=== PATIENT | male | born 1985 | race African-American/Black ===

== ENCOUNTER 2024-06-21 21:35 | Emergency (ER) | payer OTHER ==
[~2024-06-21] VITALS: Ht 172.7 cm; Wt 87.0 kg
[2024-06-21 21:42] VITALS: O2SAT 98
[2024-06-21 21:45] VITALS: BP 137/89; PULSE 86; RESP 16; TEMP 98; O2SAT 99
[2024-06-21 22:39] LABS: BASOPHILS % 0.8 % (0.0-2.0); EOSINOPHILS % 7.5 % (0.0-5.0); HEMATOCRIT. 42.2 % (42.0-52.0); HEMOGLOBIN. 13.7 g/dL (14.0-18.0); LYMPHOCYTES % 39.5 % (20.0-50.0); MEAN CORPUSCULAR HEMOGLOBIN 26.3 pg (28.0-32.0); MEAN CORPUSCULAR HGB CONC 32.4 g/dL (31.0-37.0); MEAN CORPUSCULAR VOLUME 81.3 fL (80.0-94.0); MEAN PLATELET VOLUME 8.5 fl (7.4-10.4); MONOCYTES % 8.1 % (2.0-8.0); NEUTROPHILS % 44.1 % (40.0-76.0); PLATELET 195 x1000/uL (130-400); RED CELL DISTRIBUTION WIDTH 13.9 % (11.6-14.6); WHITE BLOOD COUNT 5.4 x1000/uL (4.5-11.0)
[2024-06-21 22:49] LABS: CARBON DIOXIDE 30 mEq/L (21-32); CHLORIDE 106 mEq/L (98-107); POTASSIUM 4.2 mEq/L (3.5-5.1); SODIUM 141 mEq/L (136-145)
[2024-06-21 22:50] LABS: CALCIUM 9.9 mg/dL (8.7-10.4)
[2024-06-21 22:55] LABS: CREATININE 1.5 mg/dL (0.6-1.3); GLUCOSE 109 mg/dL (70-105); TROPONIN I HIGH SENSITIVITY 10 ng/L (3.0-53); UREA NITROGEN BLOOD 16 mg/dL (9-23)
[2024-06-21] MEDS ORDERED: SODIUM CHLORIDE 0.9% 1,000 ML IV NR (23:30)
[2024-06-21] MEDS ORDERED: HYDROCODONE/ACETAMINOPHEN 10/325MG TABLET PO ONE (23:45)
[2024-06-22] MEDS: HYDROCODONE/ACETAMINOPHEN 10/325MG TABLET PO NR (00:26)
== END 2024-06-22 00:34 | disposition home or self-care (01) ==
LOC: ER 21:35
DX: N17.9 Acute kidney failure, unspecified (principal); M54.9 Dorsalgia, unspecified; R42 Dizziness and giddiness
CPT/HCPCS: 36415; 71045; 80048; 84484; 85025; 93005; 99285